=== PATIENT | female | born 1970 | race Caucasian/White ===

== ENCOUNTER 2016-10-28 20:53 | Emergency (ER) | payer MEDICARE ==
[2016-05-16 08:38] VITALS: BMI 21.5
[~2016-10-28 20:53] MED LIST: ESTRACE2 MG; IMITREX100 MG; SINGULAIR10 MG; TOPAMAX100 MG
== END 2016-10-28 23:57 | disposition home or self-care (01) ==
LOC: D.ER 20:53
DX: I10 Essential (primary) hypertension (principal); R51 Headache; R11.10 Vomiting, unspecified; R00.0 Tachycardia, unspecified; R94.31 Abnormal electrocardiogram [ECG] [EKG]

== ENCOUNTER 2017-06-28 00:37 | Emergency (ER) | payer MEDICARE ==
[2016-05-16 08:38] VITALS: BMI 21.5
[2017-06-28 01:07] LABS: BASOPHILS 0.3 % (0-2); EOSINOPHILS 0.6 % (0-7); HEMATOCRIT 36.5 % (36.0-48.0); HEMOGLOBIN 12.6 g/dL (12-16); IMMATURE GRANULOCYTES 0.3 % (0-5); LYMPHOCYTES 12.9 % (15-50); MCH 31.7 pg (26.0-34.0); MCHC 34.5 g/dL (31.0-37.0); MCV 91.9 fL (80.0-100.0); MEAN PLATELET VOLUME 9.2 fL (7.4-10.4); MONOCYTES 5.1 % (2-11); NEUTROPHILS 80.8 % (40-80); PLATELET COUNT 280 10x3/uL (130-400); RBC 3.97 10x6/uL (4.00-5.40); RDW 13.6 % (11.5-14.5)
[2017-06-28 01:12] LABS: APPEARANCE CLOUDY (CLEAR); BILIRUBIN NEGATIVE (NEGATIVE); COLOR RED (YELLOW); GLUCOSE NEGATIVE (NEGATIVE); KETONE NEGATIVE (NEGATIVE); LEUKOCYTE ESTERASE TRACE (NEGATIVE); NITRITE NEGATIVE (NEGATIVE); PROTEIN 2+ mg/dL (NEGATIVE); UROBILINOGEN NORMAL (NORMAL)
[2017-06-28 01:14] LABS: BACTERIA MODERATE /hpf (NONE SEEN); EPITHELIAL CELLS 0-5 /hpf (0-5); RED CELLS - URINE 25-50 /hpf (0-5); WHITE CELLS - URINE 0-5 /hpf (0-5)
[2017-06-28 01:20] LABS: ALBUMIN 3.7 g/dL (3.4-5.0); ANION GAP 12.4 mmol/L (8-16); BILIRUBIN - TOTAL 0.4 mg/dL (0.2-1.3); CALCIUM 9.5 mg/dL (8.5-10.1); CARBON DIOXIDE 30.8 mmol/L (21.0-32.0); CREATININE - SERUM 1.9 mg/dL (0.6-1.3); POTASSIUM - SERUM 3.2 mmol/L (3.5-5.1); PROTEIN - SERUM 7.5 g/dL (6.4-8.2)
== END 2017-06-28 03:32 | disposition home or self-care (01) ==
LOC: D.ER 00:37
PROVIDERS: Emergency Medicine
DX: R11.10 Vomiting, unspecified (principal); N39.0 Urinary tract infection, site not specified; I10 Essential (primary) hypertension; Q61.3 Polycystic kidney, unspecified; F17.200 Nicotine dependence, unspecified, uncomplicated

== ENCOUNTER 2018-01-17 13:27 | Emergency (ER) | payer MEDICARE ==
[2016-05-16 08:38] VITALS: BMI 21.5
[2018-01-17 14:35] LABS: BASOPHILS 0.7 % (0-2); EOSINOPHILS 1.3 % (0-7); HEMATOCRIT 38.7 % (36.0-48.0); HEMOGLOBIN 13.5 g/dL (12-16); IMMATURE GRANULOCYTES 0.3 % (0-5); LYMPHOCYTES 23.4 % (15-50); MCH 31.8 pg (26.0-34.0); MCHC 34.9 g/dL (31.0-37.0); MCV 91.3 fL (80.0-100.0); MEAN PLATELET VOLUME 9.8 fL (7.4-10.4); NEUTROPHILS 68.3 % (40-80); RBC 4.24 10x6/uL (4.00-5.40); RDW 13.3 % (11.5-14.5); WBC 9.1 10x3/uL (4.8-10.8)
[2018-01-17 14:36] LABS: PLATELET COUNT 339 10x3/uL (130-400)
[2018-01-17 14:49] LABS: ALBUMIN 3.9 g/dL (3.4-5.0); ANION GAP 16.5 mmol/L (8-16); BILIRUBIN - TOTAL 0.38 mg/dL (0.2-1.3); CALCIUM 9.2 mg/dL (8.5-10.1); CARBON DIOXIDE 24.5 mmol/L (21.0-32.0); CREATININE - SERUM 1.8 mg/dL (0.6-1.3); PROTEIN - SERUM 7.9 g/dL (6.4-8.2)
[2018-01-17 15:46] LABS: APPEARANCE HAZY (CLEAR); BILIRUBIN NEGATIVE (NEGATIVE); COLOR DK YELLOW (YELLOW); GLUCOSE NEGATIVE (NEGATIVE); KETONE NEGATIVE (NEGATIVE); NITRITE NEGATIVE (NEGATIVE); PROTEIN TRACE mg/dL (NEGATIVE); SPECIFIC GRAVITY 1.015 (1.005-1.020); UROBILINOGEN NORMAL (NORMAL)
[2018-01-17 16:00] LABS: BACTERIA FEW /hpf (NONE SEEN); EPITHELIAL CELLS 0-5 /hpf (0-5); RED CELLS - URINE >50 /hpf (0-5)
== END 2018-01-17 21:53 | disposition home or self-care (01) ==
LOC: D.ER 13:27
PROVIDERS: Emergency Medicine
DX: N28.9 Disorder of kidney and ureter, unspecified (principal); Q61.3 Polycystic kidney, unspecified; I10 Essential (primary) hypertension; F17.200 Nicotine dependence, unspecified, uncomplicated

== ENCOUNTER 2018-06-23 21:28 | Emergency (ER) | payer MEDICARE ==
[~2018-06-23] VITALS: Ht 175.3 cm; Wt 68.2 kg
[2018-06-23 21:46] VITALS: Ht 175.3 cm; Wt 68.2 kg
[2018-06-23] MEDS ORDERED: TORADOL10 MG PO (23:35)
[2018-06-23] MEDS ORDERED: ROBAXIN-750750 MG PO (23:35)
[2018-06-23 23:47] VITALS: BP 161/92
== END 2018-06-23 23:46 | disposition home or self-care (01) ==
LOC: D.ER 21:28
DX: S16.1XXA Strain of muscle, fascia and tendon at neck level, initial encounter (principal); V43.52XA Car driver injured in collision with other type car in traffic accident, initial encounter; Y93.89 Activity, other specified; Y92.410 Unspecified street and highway as the place of occurrence of the external cause; R51 Headache; I10 Essential (primary) hypertension; F17.200 Nicotine dependence, unspecified, uncomplicated

== ENCOUNTER 2021-01-29 11:00 | Outpatient (CLI) | payer MEDICARE, MEDICAID ==
[2018-06-23 21:46] VITALS: BMI 22.2
[~2021-01-29 11:00] MED LIST changes: +ROBAXIN-750750 MG PO; +TORADOL10 MG PO
== END 2021-01-29 12:00 | disposition home or self-care (01) ==
LOC: D.MAMMO 11:00
PROVIDERS: ATTEND Family Medicine
DX: Z12.31 Encounter for screening mammogram for malignant neoplasm of breast (principal)